=== PATIENT | female | born 1965 | race Caucasian/White ===

== ENCOUNTER → 2017-02-07 | Outpatient (CLI) | payer MEDICARE, MEDICAID | LOC: GMAJ 17:39 | PROVIDERS: ATTEND Family Medicine | DX: D51.3 Other dietary vitamin B12 deficiency anemia (principal); R23.3 Spontaneous ecchymoses ==

== ENCOUNTER → 2017-03-08 | Outpatient (CLI) | payer MEDICARE, MEDICAID | LOC: RESP 15:30 | PROVIDERS: ATTEND Family Medicine | DX: E53.8 Deficiency of other specified B group vitamins (principal); H81.10 Benign paroxysmal vertigo, unspecified ear ==

== ENCOUNTER 2017-03-10 11:52 | Observation (INO) | payer MEDICARE, MEDICAID ==
[2017-03-10] MEDS ORDERED: ASPIRIN TABLET 325 MG TAB PO ONE (12:19)
--- NOTE | 2017-03-10 12:30 | RAD ---
Study: Frontal and Lateral Views of the Chest. Indication: left arm and face tingling Comparison: June to 2013. IMPRESSION: Heart size normal. Lungs clear. Mild blunting left phosphoric angle, which may reflect scarring or a tiny effusion. No pneumothorax. No acute osseous abnormality. Electronically signed by: Scooby Miles MD 03/10/2017 12:28 PM CDT
--- NOTE | 2017-03-10 13:18 | CT ---
EXAM DESCRIPTION: CT head without contrast CLINICAL HISTORY: Left facial tingling. Arm tingling for approximately 3 hours COMPARISON: None. TECHNIQUE: Noncontrast spiral CT of the brain. This exam was performed according to our departmental dose-optimization program, which includes automated exposure control, adjustment of the mA and/or kV according to patient size and/or use of iterative reconstruction technique FINDINGS: No intracranial hemorrhage, infarction or mass lesion. Normal marshall-white matter differentiation Ventricles are normal in size and configuration. Atherosclerotic vascular calcifications are seen in the cavernous internal carotid arteries. No calvarial or skullbase fracture. No fluid in the paranasal sinuses or mastoid air cells IMPRESSION: Negative noncontrast head CT CT is insensitive for early evaluation of acute stroke or subtle might matter disease. If there is clinical concern for acute ischemia, an MRI may be considered. Electronically signed by: oMrgan Farrar MD 03/10/2017 1:17 PM CDT
--- NOTE | 2017-03-10 13:50 | ED.PDOC ---
History of Present Illness - General Chief Complaint: Neuro Symptoms/Deficits Stated Complaint: FACE AND LEFT ARM TINGLING Time Seen by Provider: 03/10/17 11:55 Source: patient Exam Limitations: no limitations - History of Present Illness Initial Comments: The patient is a 52-year-old female presenting to the emergency room secondary to a sensation of tingling to the left lower side of her face and her left arm for the 2 hours prior to arrival. Symptoms started while she was playing a game on her phone. No chest pain palpitations. No syncope or near- syncope. No vision taste or smell changes. No facial droop. No dysarthria or expressive or receptive aphasia. No difficulties with ambulation or fine dexterity. Sensation is preserved. Strength is preserved. No dizziness. additional information: The patient has been undergoing a workup for fatigue and dyspnea on exertion with her primary care doctor. She reports that multiple studies have been done but I do not have theresults for that. These results have been requested. She reports she thinks that everything that they have done is come back normal. Timing/Duration: 1-3 hours Severity: mild Improving Factors: nothing Worsening Factors: nothing Associated Symptoms: denies symptoms Allergies/Adverse Reactions: Allergies NO KNOWN ALLERGY Allergy (Verified 10/08/12 08:19) Review of Systems - Review of Systems Constitutional: States: malaise EENTM: States: no symptoms reported Respiratory: States: no symptoms reported, other - longer-term dyspnea on exertion Cardiology: States: no symptoms reported Gastrointestinal/Abdominal: States: no symptoms reported Genitourinary: States: no symptoms reported Musculoskeletal: States: no symptoms reported Skin: States: no symptoms reported Neurological: States: see HPI, anxiety Endocrine: States: no symptoms reported All other Systems: No Change from Baseline Past Medical History (General) - Patient Medical History Hx Stroke: No Hx Congestive Heart Failure: No Hx Hypertension: Yes Hx Diabetes: No Hx Cancer: No Hx MRSA: No Surgical History: Hysterectomy, other - Vaccination History Hx Influenza Vaccination: Yes - 2014 Hx Pneumococcal Vaccination: No - Social History Hx Tobacco Use: Yes Family Medical History - Family History Mother Family History: Unknown Living Status: Unknown Physical Exam - Physical Exam General Appearance: Alert, Anxious, No apparent distress Eye Exam: bilateral normal Ears, Nose, Throat: hearing grossly normal, normal ENT inspection, normal pharynx Neck: non-tender, full range of motion, supple Respiratory: chest non-tender, lungs clear, normal breath sounds, no respiratory distress, no accessory muscle use Cardiovascular/Chest: normal peripheral pulses, regular rate, rhythm, no edema Peripheral Pulses: radial,right: 2+, radial,left: 2+, dorsalis pedis,right: 2+, dorsalis pedis,left: 2+ Gastrointestinal/Abdominal: non tender, soft Rectal Exam: deferred Back Exam: normal inspection, no CVA tenderness, no vertebral tenderness Extremity: normal range of motion, non-tender, normal inspection, no pedal edema , no calf tenderness, normal capillary refill Neurologic: 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 II-XII nml as tested, no motor/sensory deficits, alert, normal mood/affect - anxious, oriented x 3 DTR: 2+: Patellar, left, Patellar, right Skin Exam: normal color Comments: Vital Signs - 24 hr 03/10/17 03/10/17 03/10/17 11:55 12:17 12:18 Temperature 99.4 F Pulse Rate [ 63 68 70 APICAL] Respiratory 20 20 22 Rate Blood Pressure 164/70 156/86 150/91 [RIGHT BRACHIAL ] O2 Sat by Pulse 98 98 98 Oximetry 03/10/17 03/10/17 03/10/17 12:19 12:59 13:26 Temperature Pulse Rate [ 66 104 H 114 H APICAL] Respiratory 22 16 Rate Blood Pressure 144/74 110/74 124/65 [RIGHT BRACHIAL ] O2 Sat by Pulse 98 100 100 Oximetry Progress - Progress Progress: 03/10/17 13:51 the patient is a 52-year-old female presenting to the emergency room secondary to what appears to be mild paresthesia to the left face and left upper extremity. This is most likely the result of nerve impingement, however I cannot definitively say that she is not having the initial symptoms of a small stroke. The patient will be monitored admitted for further neurological monitoring. Vital signs are stable. There is been no progression of symptoms. admit for further observation. No objectifiable deficits at this time. we are awaiting records from the primary care doctorfor the workup she has had over the last month for her symptoms of fatigue. - Results/Orders Results/Orders: Laboratory Tests 03/10/17 03/10/17 03/10/17 12:00 12:00 12:00 WBC 11.1 H RBC 5.19 Hgb 15.3 Hct 45.4 MCV 87.5 MCH 29.4 MCHC 33.6 RDW 14.6 H Plt Count 255 MPV 6.8 L Absolute Neuts (auto) 8.20 H Absolute Lymphs (auto) 2.00 Absolute Monos (auto) 0.70 Absolute Eos (auto) 0.10 Absolute Basos (auto) 0.00 Neutrophils % 73.7 Lymphocytes % 18.3 L Monocytes % 6.4 Eosinophils % 1.2 Basophils % 0.4 PT 10.6 INR 0.940 PTT (SP) 44.7 H D-Dimer, Quantitative < 200 Sodium 134 L Potassium 4.0 Chloride 97 L Carbon Dioxide 27 Anion Gap 14.0 BUN < 5 L Creatinine 0.67 BUN/Creatinine Ratio 7.5 L Random Glucose 102 Serum Osmolality 265.7 L Calcium 9.3 Magnesium 2.0 Total Bilirubin 0.5 AST 19 ALT 19 Alkaline Phosphatase 87 Creatine Kinase 46 CK-MB (CK-2) 1.1 CK-MB (CK-2) % Not Reportable Troponin I < 0.02 B-Natriuretic Peptide < 5.0 Serum Total Protein 7.0 Albumin 4.6 Globulin 2.4 Albumin/Globulin Ratio 1.9 TSH 1.16 chest x-ray appears benign. CT of the head shows no acute pathology. Departure - Departure Clinical Impression: Stroke-like symptoms Disposition: Admit Patient Decision To Admit - Decistion To Admit Decision to Admit Reason: Medical Nature Decision to Admit Date: 03/10/17 Decision to Admit Time: 13:54
--- NOTE | 2017-03-10 16:27 | HP ---
SUPERVISING PHYSICIAN: Morgan Tamez M.D. CHIEF COMPLAINT: Left face and arm tingling. HISTORY OF PRESENT ILLNESS: This is a 52 year-old female patient who has had several months of fatigue. She has been seeing her primary care physician, Dr. Leal, and has had quite a bit of testing done over the last few weeks. Yesterday, she said that she just did not feel very good and this morning about 9:30 AM the left side of her face started tingling. She also had some tingling in her arm and she had some pressure over the left shoulder area. There was no complaints of facial dropping or weakness in the leg. She said she felt like she had some heartburn. She also has a history of bipolar disorder as well as anxiety and she became very anxious about her condition, and she came to the Emergency Room. She had a carotid scheduled for next week for Dr. Leal. In the Emergency Room, her chest x-ray shows heart size is normal. Lungs are clear. Mild blunting of the left phosphoric angle which may reflect scarring or a tiny effusion. No pneumothorax. No acute osseous abnormality. CT of the head per radiology interpretation showed negative noncontrast head CT. Lab: Cardiac enzymes were negative. WBCs were slightly elevated at 11.1. Neutrophils were 73.7. D-dimer was less than 200. Sodium 134, potassium 4, chloride 97, carbon dioxide 27, BUN less than 5, creatinine 0.67, glucose 102, serum osmolality 265.7. I was called for admission. PAST MEDICAL HISTORY: 1. Gastroesophageal reflux disease. 2. Hyperlipidemia. 3. Hypertension. 4. Chronic obstructive pulmonary disease. 5. Bipolar disease. 6. Anxiety. PAST SURGICAL HISTORY: 1. Hysterectomy. 2. sections times 2. 3. Left knee surgery times 2. OUTPATIENT MEDICATIONS: Per the EMR and awaiting verification. ALLERGIES: NO KNOWN DRUG ALLERGIES. FAMILY HISTORY: Father had several myocardial infarctions. Mother had type 2 diabetes and bipolar disorder. SOCIAL HISTORY: She smokes about 3 to 4 cigarettes a day. She has smoked since she was 15. She has cut down from 1/2 pack per day. She quit drinking alcohol about 5 years ago and before that she drank alcohol to excess. She denies any illicit drug use. She is but lives with her ex-. She has 2 children. She lives here in [place]. REVIEW OF SYSTEMS: Positive for fatigue. Negative for fever or weight changes. HEENT: Negative for sinus symptoms, ear pain, vision changes or sore throat. RESPIRATORY: Denies coughing, wheezing or shortness of breath. CARDIAC: Left sided chest pain. Denies palpitations or tachycardia. ABDOMEN: Positive for heartburn. Denies constipation, diarrhea, nausea or vomiting. GENITOURINARY: Denies dysuria, hematuria or polyuria. SKIN: Denies lesions or rashes. NEUROLOGIC: Denies headaches, weakness or seizures. PSYCHIATRIC: Positive bipolar and anxiety. PHYSICAL EXAMINATION: VITAL SIGNS: She is afebrile, heart rate 78, blood pressure 149/83, respiratory rate 20, O2 saturation is 99% on room air. GENERAL: This is a 52 year-old female patient sitting in her hospital bed. She is in no acute distress. HEENT: Normocephalic and atraumatic. Pupils are equal and reactive. Oropharynx is clear. NECK: Supple without mass. CHEST: Clear to auscultation bilaterally. There is equal rise and fall of the chest with inspiration and expiration. CARDIOVASCULAR: Regular rate and rhythm. ABDOMEN: Soft, nondistended, non-tender. Bowel sounds are positive. EXTREMITIES: No cyanosis, clubbing or edema. NEUROLOGIC: She is awake, alert and oriented times three. Investor Relations Specialist are equal bilaterally. She has no noticeable facial droop. LABORATORY: Labs and films are as per the history of present illness with the exception of her second set of cardiac enzymes were negative. Urinalysis is still pending. All other labs and films have been reviewed via the EMR. ASSESSMENT: 1. Stroke-like symptoms. 2. Chest pain with negative cardiac enzymes and EKG with normal sinus rhythm. 3. Gastroesophageal reflux disease. 4. Bipolar disorder. 5. Anxiety. 6. Hypertension. 7. Hyperlipidemia. PLAN: We will place the patient in Observation. Will do neuro checks. I have ordered a carotid ultrasound. Will repeat her lab in the morning. As soon as her medications are verified, I will restart those, but as for now I have given her some Mylanta as well as some Xanax. I started her on Protonix for ulcer prophylaxis and Lovenox for DVT prophylaxis. Hopefully she will be discharged tomorrow with close followup with Dr. Leal. Dr. Tamez is the collaborating physician available for consultation. #[id number] [facility]
[2017-03-10] MEDS ORDERED: ALUM & MAG HYDROX-SIMETHICONE 30 ML UD PO ONE (16:57)
[2017-03-10] MEDS ORDERED: SODIUM CHLORIDE 0.9% (FLUSH) 10 ML SYG IV PRN (17:33)
[2017-03-10] MEDS ORDERED: LEVALBUTEROL NEBS 1.25 MG/3 ML VIAL INH PRN (17:35)
[2017-03-10] MEDS ORDERED: ACETAMINOPHEN 325 MG TAB PO PRN (17:35)
[2017-03-10] MEDS ORDERED: ALUM & MAG HYDROX-SIMETHICONE 30 ML UD PO PRN (17:37)
[2017-03-10] MEDS ORDERED: ALPRAZolam 0.25 MG TAB PO ONE (17:37)
[2017-03-10] MEDS ORDERED: PANTOPRAZOLE SODIUM IV 40 MG VIAL IV SCH (18:00)
[2017-03-10] MEDS ORDERED: ENOXAPARIN SODIUM 40 MG/0.4 ML SYG SUBCU SCH (18:00)
[2017-03-10] MEDS ORDERED: IV SET AND CAP CHANGE INJ INJ SCH (18:00)
[2017-03-10] MEDS: LEVALBUTEROL NEBS 1.25 MG/3 ML VIAL INH SCH (20:30)
[2017-03-10] MEDS ORDERED: hydrOXYzine PAMOATE 25 MG CAP PO PRN (22:32)
[2017-03-10] MEDS ORDERED: ALPRAZolam 0.5 MG TAB PO PRN (22:32)
[2017-03-10] MEDS ORDERED: NON-FORMULARY MEDICATION 1 EA MIS (Trazodone Hcl [Trazodone Hcl] 150 MG) PO SCH (22:32)
[2017-03-10] MEDS ORDERED: traZODone HCL 100 MG TAB PO ONE (22:40)
[2017-03-10] MEDS ORDERED: traZODone HCL 50 MG TAB PO ONE (22:40)
[2017-03-11] MEDS: LEVALBUTEROL NEBS 1.25 MG/3 ML VIAL INH SCH (08:35)
[2017-03-11] MEDS ORDERED: LISINOPRIL 10 MG TAB PO SCH (09:00)
[2017-03-11] MEDS ORDERED: BENZTROPINE MESYLATE TAB 1 MG TAB PO SCH (09:00)
[2017-03-11] MEDS ORDERED: SODIUM CHLORIDE 0.9% (FLUSH) 10 ML SYG IV SCH (09:00)
[2017-03-11] MEDS ORDERED: ARIPiprazole 5 MG TAB PO SCH (09:00)
[2017-03-11 10:14] VITALS: BP 160/94; TEMP 97.4; O2SAT 99
[2017-03-11] MEDS ORDERED: PANTOPRAZOLE SODIUM TAB 40 MG PO SCH (11:30)
--- NOTE | 2017-03-11 13:39 | DS ---
SUPERVISING PHYSICIAN: Morgan Tamez MD DISCHARGE DIAGNOSIS: 1. Stroke-like symptoms with left sided face tingling as well as left arm tingling. 2. Chest pain with negative cardiac enzymes and EKG that shows normal sinus rhythm and occasionally sinus bradycardia. 3. Gastroesophageal reflux disease. 4. Bipolar disorder. 5. Anxiety. 6. Hypertension. 7. Hyperlipidemia. HISTORY OF PRESENT ILLNESS: This is a 52-year-old female patient who has had several months of increasing fatigue. She has been seeing her primary care physician, Dr. Leal, and has had quite a bit of testing done over the last few weeks. Yesterday, she felt much worse than before about 9:30 AM the left side of her face started a tingling sensation. There was no aphasia, no facial drooping, no vision or smell changes. There was no syncope or near syncope. She also had some complaints of heartburn and has had increasing heartburn over the last several weeks. She also has a history of bipolar disorder as well as anxiety disorder and she became very anxious about her condition, and she came to the Emergency Room. She has had a 24 hour Holter monitor ordered by Dr. Leal last week that revealed mostly sinus rhythm to sinus bradycardia with a few incidences where her heart rate went down to the mid-40s. She had a carotid scheduled for next week and one was done shortly after admission here in the hospital. Per radiologic interpretation, it showed no hemodynamically significant stenosis detected. CT of the head per radiology interpretation showed negative noncontrast head CT. Lab in the Emergency Room showed cardiac enzymes were negative. WBCs were slightly elevated at 11.1. Neutrophils were 73.7. D-dimer was less than 200. Sodium 134, potassium 4, chloride 97, carbon dioxide 27, BUN less than 5, creatinine 0.67, glucose 102, serum osmolality 265.7. HOSPITAL COURSE: Shortly after being admitted to the Floor, the patient had the tingling sensation recur. Cardiac enzymes were again ordered and they were negative. She was given an extra dose of Xanax as well as Mylanta and relieved her symptoms. Her lab this morning showed a normalized white count of 7.7, sodium slightly low at 133. Serum osmolality was slightly low at 263.6. Urinalysis was within normal limits. This morning, she had another episode of the tingling in her left side. She was given some Mylanta and some Xanax and the symptoms were relieved. She can be discharged home today with close followup with Dr. Leal next week. DISCHARGE PLAN: The patient will be discharged home in stable condition. She is to resume her previous diet. I have sent extra dosing of Xanax for her anxiety until she can be further evaluated by her psychiatrist, Dr. Walker, at [facility], or until she sees Dr. Leal next week on 03/16/17 at 10 AM. I also instructed her she should take Mylanta for her episodic symptoms of gastroesophageal reflux disease. I have also given her 14 days of Protonix. She may warrant a workup by GI at some point. She will get a followup appointment with Dr. Walker. Due to her occasional episodes of bradycardia, I attempted to get an appointment with Dr. Genao in clinic today, but he was unavailable. She may need a cardiac workup at some point. She is to return to the hospital or call Dr. Leal' office if she has any further symptoms that are not alleviated with her Xanax and her Mylanta. We discussed the signs and symptoms of stroke at length and she voiced understanding. DISCHARGE MEDICATIONS: 1. Lisinopril. 2. Benztropine mesylate. 3. Her regular Xanax 0.5 mg b.i.d. 4. Trazodone. 5. Aripiprazole. 6. Hydroxyzine. 7. Xanax p.r.n. 8. Mylanta. 9. Pantoprazole. Dr. Tamez is the collaborating physician and available for consultation. #[id number] [facility]
[2017-03-11] MEDS ORDERED: traZODone HCL 100 MG, traZODone HCL 50 MG PO SCH ×2 (21:00)
[2017-03-11] MEDS ORDERED: ENOXAPARIN SODIUM 40 MG/0.4 ML SYG SUBCU SCH (21:00)
== END 2017-03-11 12:10 | disposition home or self-care (01) ==
LOC: ER 11:52 → MS 14:50 → ER 14:55
PROVIDERS: ADMIT Nurse Practitioner Acute Care; ATTEND Nurse Practitioner Acute Care
DX: R20.2 Paresthesia of skin (principal); R07.89 Other chest pain; K21.9 Gastro-esophageal reflux disease without esophagitis; F31.9 Bipolar disorder, unspecified; F41.9 Anxiety disorder, unspecified; I10 Essential (primary) hypertension; E78.5 Hyperlipidemia, unspecified; J44.9 Chronic obstructive pulmonary disease, unspecified; F17.210 Nicotine dependence, cigarettes, uncomplicated; Z90.710 Acquired absence of both cervix and uterus; Z82.49 Family history of ischemic heart disease and other diseases of the circulatory system; Z83.3 Family history of diabetes mellitus; Z81.8 Family history of other mental and behavioral disorders
CPT/HCPCS: 36415 ×4; 70450; 71020; 80053 ×2; 81001; 82550 ×3; 82553 ×3; 83735; 83880; 84443; 84484 ×3; 85025 ×2; 85379; 85610; 85730; 93005 ×2; 93880; 94640 ×3; 94760 ×5; 96372; 96374; 99284; G0378; J1650; J7614 ×2

== ENCOUNTER 2017-04-30 15:17 | Emergency (ER) | payer MEDICARE, MEDICAID ==
[2017-04-30 15:32] VITALS: BP 144/80; TEMP 98.9; O2SAT 95
--- NOTE | 2017-04-30 15:35 | ED.PDOC ---
History of Present Illness - General Chief Complaint: Dental/Mouth Stated Complaint: dental pain Time Seen by Provider: 04/30/17 15:31 Source: patient, RN notes reviewed, Vital Signs reviewed Exam Limitations: no limitations - History of Present Illness Initial Comments: Patient comes to ER with tooth pain. Pain is in a L lower molar. She use to have a cap of that tooth that fell off a while ago. Yesterday the piece of the tooth that was sticking up broke off. She is now having pain and swelling. Timing/Duration: 24 hours Severity: moderate Improving Factors: medication - aspirin Worsening Factors: eating Associated Symptoms: denies symptoms Allergies/Adverse Reactions: Allergies NO KNOWN ALLERGY Allergy (Verified 10/08/12 08:19) Home Medications: Ambulatory Orders ALPRAZolam [Xanax] 0.5 mg PO BID 03/10/17 Aripiprazole 30 mg PO DAILY 03/10/17 Benztropine Mesylate 2 mg PO BID 03/10/17 Hydroxyzine Pamoate 50 mg PO BID PRN 03/10/17 Lisinopril 40 mg PO DAILY 03/10/17 Trazodone HCl 150 mg PO BEDTIME 03/10/17 ALPRAZolam [Xanax] 0.25 mg PO Q6H #20 tab 03/11/17 Alum & Mag Hydrox-Simethicone [Mylanta] 30 ml PO Q4H PRN 03/11/17 Pantoprazole Tablet [Protonix] 40 mg PO DAILY@0630 #14 tablet 03/11/17 Amoxicillin [Amoxil] 500 mg PO TID #21 cap 04/30/17 Review of Systems - Review of Systems Constitutional: States: no symptoms reported. Denies: chills, fever EENTM: States: see HPI, mouth pain, mouth swelling Respiratory: States: no symptoms reported Cardiology: States: no symptoms reported Musculoskeletal: States: no symptoms reported Skin: States: no symptoms reported Neurological: States: no symptoms reported All other Systems: No Change from Baseline Past Medical History (General) - Patient Medical History Hx Stroke: No Hx Congestive Heart Failure: No Hx Hypertension: Yes Hx Diabetes: No Hx Cancer: No Hx MRSA: No Surgical History: Hysterectomy - Vaccination History Hx Influenza Vaccination: Yes Hx Pneumococcal Vaccination: No - Social History Hx Tobacco Use: Yes Family Medical History - Family History Mother Family History: Unknown Living Status: Still Living Physical Exam - Physical Exam General Appearance: Alert, Comfortable, No apparent distress, Well Developed, Well Groomed, Well Hydrated, Well Nourished Ears, Nose, Throat: other - L lower molar - broken @ gumline with surrounding swelling and tenderness Neck: full range of motion, supple, lymphadenopathy (L) - tender Respiratory: no respiratory distress Neurologic: alert, normal mood/affect, oriented x 3 Skin Exam: normal color, warm/dry Comments: Vital Signs 04/30/17 15:28 Temperature 98.9 F Pulse Rate [ 70 Left Brachial] Respiratory 16 Rate Blood Pressure 144/80 [Left Arm] O2 Sat by Pulse 95 Oximetry Departure - Departure Clinical Impression: Pain due to dental caries, Dental abscess Time of Disposition: 15:37 Disposition: Discharge to Home or Self Care Condition: Good Departure Forms: ED Discharge - Pt. Copy, Patient Portal Self Enrollment Instructions: Tooth Abscess Diet: resume usual diet Activity: increase activity as tolerated Referrals: Dilip Leal MD [Primary Care Provider] - 1-2 Weeks Prescriptions: Amoxicillin [Amoxil] 500 mg PO TID #21 cap Home Medications: Ambulatory Orders ALPRAZolam [Xanax] 0.5 mg PO BID 03/10/17 Aripiprazole 30 mg PO DAILY 03/10/17 Benztropine Mesylate 2 mg PO BID 03/10/17 Hydroxyzine Pamoate 50 mg PO BID PRN 03/10/17 Lisinopril 40 mg PO DAILY 03/10/17 Trazodone HCl 150 mg PO BEDTIME 03/10/17 ALPRAZolam [Xanax] 0.25 mg PO Q6H #20 tab 03/11/17 Alum & Mag Hydrox-Simethicone [Mylanta] 30 ml PO Q4H PRN 03/11/17 Pantoprazole Tablet [Protonix] 40 mg PO DAILY@0630 #14 tablet 03/11/17 Amoxicillin [Amoxil] 500 mg PO TID #21 cap 04/30/17 Additional Instructions: Follow up with Dentist ARIADNE
== END 2017-04-30 15:52 | disposition home or self-care (01) ==
LOC: ER 15:17
DX: K02.9 Dental caries, unspecified (principal); K04.7 Periapical abscess without sinus; I10 Essential (primary) hypertension; Z87.891 Personal history of nicotine dependence

== ENCOUNTER → 2017-06-07 | Outpatient (CLI) | payer MEDICARE, MEDICAID | LOC: GMAJ 11:16 | PROVIDERS: ATTEND Family Medicine | DX: I10 Essential (primary) hypertension (principal); E53.8 Deficiency of other specified B group vitamins ==

== ENCOUNTER → 2017-10-27 | Outpatient (CLI) | payer MEDICARE, MEDICAID | END | disposition home or self-care (01) | LOC: GMAJ 10:08 | PROVIDERS: ATTEND Family Medicine | DX: I10 Essential (primary) hypertension (principal) ==

== ENCOUNTER → 2017-11-03 | Outpatient (CLI) | payer MEDICARE, MEDICAID ==
--- NOTE | 2017-11-07 08:30 | MAM ---
EXAM DESCRIPTION: 3D Screening BILATERAL : Digital Mammography. CLINICAL HISTORY: 52 years Female SCREENING . No complaints. No family history of breast cancer. Sister and remote family history of ovarian cancer. Postmenopausal. No HRT. COMPARISON: Baseline study at this facility.. No prior reports available. TECHNIQUE: Bilateral CC and MLO projection full-field images, 3-D tomosynthesis digital mammographic technique. Also bilateral synthesized CC/ MLO full-field images. CAD not utilized. FINDINGS: The breast parenchymal density pattern is: Scattered areas of fibroglandular density. No skin thickening or nipple retraction bilateral solitary microcalcifications. Focal asymmetry in the middle third of the upper-outer quadrant of the right breast approximately 8 cm from the nipple. Not associated with microcalcifications. Focal asymmetry in the lateral left breast middle third approximately 6 cm from the nipple. Not associated with microcalcifications. No focal, stellate mass or density, , and no suspicious microcalcifications bilaterally. IMPRESSION: BI-RADS CATEGORY: 0 - INCOMPLETE- Need additional imaging evaluation. FOLLOW-UP: Recall for additional imaging: Bilateral 3-D tomosynthesis full field LM images. Bilateral targeted breast ultrasound.. Written communication concerning the IMPRESSION and Follow-up, will be mailed to the patient and referring health care provider. Electronically signed by: Amrit Russell MD 11/07/2017 8:29 AM CDT
== END ==
LOC: MAMMO 09:59
PROVIDERS: ATTEND Family Medicine
DX: Z12.31 Encounter for screening mammogram for malignant neoplasm of breast (principal)

== ENCOUNTER → 2017-11-21 | Outpatient (CLI) | payer MEDICARE, MEDICAID ==
--- NOTE | 2017-11-21 10:56 | MAM ---
EXAM DESCRIPTION: 3D Diagnostic, Bilateral: Digital Mammography CLINICAL HISTORY: 52 yearsFemaleABNORMAL MAMMOGRAM bilateral focal asymmetry in the breast.. COMPARISON: 3-D digital screening bilateral mammography 11/07/2017.. Bilateral targeted breast ultrasound following this examination. Reports from prior examinations also reviewed. TECHNIQUE: Bilateral LM projection full-field images, 3-D tomosynthesis digital mammographic technique. Also bilateral synthesized LM full-field images. CAD not utilized. FINDINGS: The breast parenchymal density pattern is: Scattered areas of fibroglandular density. No skin thickening or nipple retraction . Solitary microcalcification right breast. Bilateral regions of focal asymmetry seen on the prior study not well visualized on the 3-D tomosynthesis LM images bilaterally. No focal, stellate mass or density, focal asymmetry , and no suspicious microcalcifications bilaterally. ULTRASOUND: Scanning at the 900 clock position of the right breast, 8 cm from the nipple. Mostly fatty echotexture with minimal fibroglandular tissues. No distinct solid mass or cyst, no large calcifications or parenchymal edema. No skin changes. Normal Doppler vascularity. Scanning at the 400 clock position of the left breast 6 cm from the nipple. Same findings as in the right breast. IMPRESSION: BI-RADS CATEGORY: 2 - BENIGN FINDINGS. FOLLOW UP: Return to routine digital bilateral screening, one year interval from October 2017. The FINDINGS and the FOLLOW-UP plan were reviewed in person with the patient after the examination. Written communication explaining the IMPRESSION and FOLLOW-UP will be mailed to the patient and referring care provider. According to the [employer], yearly mammograms are recommended starting at age 40 and continuing as long as a woman is in good health. Any breast change noted on a breast self-exam should be reported promptly to the patient's healthcare provider. Breast MRI is recommended for women with an approximately 20-25% or greater lifetime risk of breast cancer, including women with a strong family history of breast or ovarian cancer and women who have been treated for Hodgkin's disease. A negative mammographic report should not delay tissue diagnosis in patients with significant clinical history or physical findings. Extremely dense breast tissue limits the sensitivity of digital mammography. Electronically signed by: Amrit Russell MD 11/21/2017 10:55 AM CDT
--- NOTE | 2017-11-21 10:56 | US ---
EXAM DESCRIPTION: Breast,Bilateral: Ultrasound CLINICAL HISTORY: 52 yearsFemaleABNORMAL AND INCONCLUSIVE MAMMOGRAM COMPARISON: Digital diagnostic 3-D tomosynthesis bilateral mammograms on this visit. Bilateral 3-D tomosynthesis screening mammography 11/03/2017. TECHNIQUE: Transcutaneous scanning of the bilateral breast utilizing two-dimensional and Doppler modes. Scanning performed by the flight communications officer and Dr. Russell. FINDINGS: Scanning at the 900 clock position of the right breast, 8 cm from the nipple. Mostly fatty echotexture with minimal fibroglandular tissues. No distinct solid mass or cyst, no large calcifications or parenchymal edema. No skin changes. Normal Doppler vascularity. Scanning at the 400 clock position of the left breast 6 cm from the nipple. Same findings as in the right breast. IMPRESSION: 1. Bi-Rads Category 2: Benign. 2. Please refer to bilateral 3-D tomosynthesis diagnostic breast mammography and report on this visit. The FINDINGS and the FOLLOW-UP plan were reviewed in person with the patient after the examination. Written communication explaining the IMPRESSION and FOLLOW-UP will be mailed to the patient and referring care provider. Electronically signed by: Amrit Russell MD 11/21/2017 10:55 AM CDT
== END ==
LOC: MAMMO 09:00
PROVIDERS: ATTEND Family Medicine
DX: R92.8 Other abnormal and inconclusive findings on diagnostic imaging of breast (principal)
CPT/HCPCS: 76641; 77066; G0279

== ENCOUNTER 2018-06-12 05:40 | Day surgery (SDC) | payer MEDICARE, MEDICAID ==
[2018-06-12] MEDS ORDERED: TROP 1%/CYCLOPEN 1%/PHENYL 2% DROPS OPHTH ONE (05:41)
[2018-06-12] MEDS ORDERED: MIDAZOLAM INJ 2 MG/2 ML VIAL ONE ×2 (10:07→10:53)
[2018-06-12] MEDS ORDERED: PROPARACAINE 0.5% OPHTH SOL 15 ML BTTL LEFT_EYE ONE (10:43)
[2018-06-12] MEDS ORDERED: DEXAMETHASONE 0.1% OPHTH SOL 1 DROP LEFT_EYE ONE ×2 (10:47→11:06)
[2018-06-12] MEDS ORDERED: BRIMONIDINE 0.2% OPHTH DROPS LEFT_EYE ONE ×2 (10:47→11:06)
[2018-06-12] MEDS ORDERED: TOBRAMYCIN SULF 0.3 % OPHT SOL 1 DROP LEFT_EYE ONE ×2 (10:47→11:06)
[2018-06-12] MEDS ORDERED: LIDOCAINE 1% 2 ML VIAL INJ ONE ×2 (10:47→10:54)
== END 2018-06-12 11:50 | disposition home or self-care (01) ==
LOC: AMB 05:40
PROVIDERS: ATTEND Ophthalmology
DX: H25.9 Unspecified age-related cataract (principal); I10 Essential (primary) hypertension; F17.200 Nicotine dependence, unspecified, uncomplicated; Z79.899 Other long term (current) drug therapy
CPT/HCPCS: 00142; 66984; J2250

== ENCOUNTER 2018-06-26 05:40 | Day surgery (SDC) | payer MEDICARE, MEDICAID ==
[2018-06-26] MEDS ORDERED: TROP 1%/CYCLOPEN 1%/PHENYL 2% DROPS ONE (05:58)
[2018-06-26] MEDS ORDERED: PROPARACAINE 0.5% OPHTH SOL 15 ML BTTL ONE (05:58)
[2018-06-26] MEDS ORDERED: MIDAZOLAM INJ 2 MG/2 ML VIAL ONE (06:38)
[2018-06-26] MEDS ORDERED: LIDOCAINE 1% MPF 5 ML VIAL INJ ONE (07:36)
[2018-06-26] MEDS ORDERED: BRIMONIDINE 0.2% OPHTH DROPS RIGHT_EYE ONE (07:48)
[2018-06-26] MEDS ORDERED: TOBRAMYCIN SULF 0.3 % OPHT SOL 1 DROP RIGHT_EYE ONE (07:48)
[2018-06-26] MEDS ORDERED: DEXAMETHASONE 0.1% OPHTH SOL 1 DROP RIGHT_EYE ONE (07:48)
== END 2018-06-26 08:22 | disposition home or self-care (01) ==
LOC: AMB 05:40
PROVIDERS: ATTEND Ophthalmology
DX: H25.11 Age-related nuclear cataract, right eye (principal); I10 Essential (primary) hypertension; K21.9 Gastro-esophageal reflux disease without esophagitis; F17.200 Nicotine dependence, unspecified, uncomplicated; F41.9 Anxiety disorder, unspecified
CPT/HCPCS: 00142; 66984; J2250

== ENCOUNTER → 2018-11-24 | Outpatient (CLI) | payer MEDICARE, MEDICAID ==
--- NOTE | 2018-11-26 09:00 | CT ---
EXAM DESCRIPTION: Chest w/o Contrast : Computed Tomography. CLINICAL HISTORY: 53 years Female CHRONIC OBSTRUCTIVE PULMONARY DISEASE COMPARISON: CTA chest 06/25/2014. TECHNIQUE: Spiral-axial scans at 5 x 5 mm intervals through the lungs and thorax without IV contrast. 2.5 x 5 mm lung algorithm axial reconstructions. Coronal and sagittal 2.0 Mm reconstructions. Total Exam DLP: 355.44 mGy-cm. This exam was performed according to our departmental dose-optimization program which includes automated exposure control, adjustment of the mA and/or kV according to patient size and/or use of iterative reconstruction technique; to reduce radiation dose to as low as reasonably achievable (ALARA). Nodule measurements under 10 mm are given as mean value of 3 axes diameters. FINDINGS: Lungs and large airways: Small solid nodules less than 4 mm in diameter in the right upper lobe. Stable since the prior study. Fissural thickening inferior right major fissure. Stable since the prior study. 4 mm subsolid nodule superior segment left lower lobe on image 4/71. Not seen on the prior study. Pleural parenchymal scarring in the inferior lingula. Thickening of the inferior fissure abutting the inferior lingula. No abnormal nodules or masses. No focal infiltrate. Pleural spaces: Negative. Mediastinum and Jing: Evaluation limited due to lack of IV contrast. No enlarged lymph nodes. Great vessels and Heart: Minimal atherosclerotic calcification in the aortic arch and proximal brachiocephalic vessels. Soft tissues of neck base, axillae, and chest wall: Evaluation limited due to lack of IV contrast.. Lymph nodes are not enlarged. Upper abdomen: Gallbladder partially visualized. Osseous structures: Minimal upper thoracic levoscoliosis. Minimal spondylosis. Right sternoclavicular arthrosis. IMPRESSION: 1. Bilateral pulmonary nodules most less than 4 mm in diameter with one 4 mm nodule in the superior segment of the left lower lobe. This nodule was not seen on the prior study which may be due to technique with thicker slices. [facility] Best Practice recommendations: No routine follow-up recommended. 2. Clinical emphysema but no significant CT findings. Electronically signed by: Amrit Russell MD 11/26/2018 8:58 AM CDT
== END ==
LOC: CT 13:22
PROVIDERS: ATTEND Family Medicine
DX: J44.9 Chronic obstructive pulmonary disease, unspecified (principal); R91.8 Other nonspecific abnormal finding of lung field

== ENCOUNTER → 2019-04-02 | Outpatient (CLI) | payer OTHER, MEDICAID | LOC: GMAJS 11:46 | PROVIDERS: ATTEND Physician Assistant | DX: L23.9 Allergic contact dermatitis, unspecified cause (principal) ==

== ENCOUNTER → 2019-05-03 | Outpatient (CLI) | payer OTHER, MEDICAID ==
--- NOTE | 2019-05-03 11:06 | CT ---
EXAM DESCRIPTION: Head w/wo Contrast CLINICAL HISTORY: LOCALIZED SWELLING, MASS AND LUMP COMPARISON: None available TECHNIQUE: CT brain is performed prior to and following IV administration of routine adult dose of nonionic iodinated IV contrast. FINDINGS: Ventricles and sulci are unremarkable on the precontrast images. There is no hemorrhage or mass. There are no white matter abnormalities detected. The calvarium is unremarkable. The visualized paranasal sinuses and the mastoids are clear. After IV contrast, normal enhancement of intracranial vessels. Normal marshall-white matter differentiation. No enhancing intracranial mass lesion. Coronal and sagittal reformatted images confirm the findings. IMPRESSION: Normal pre and postcontrast CT imaging of the brain. This exam was performed according to our departmental dose-optimization program, which includes automated exposure control, adjustment of the mA and/or kV according to patient size and/or use of iterative reconstruction technique. Electronically signed by: Zander Pope MD 05/03/2019 11:05 AM CDT
--- NOTE | 2019-05-03 11:11 | CT ---
EXAM DESCRIPTION: Maxillofacial w/wo Contrast CLINICAL HISTORY: 54 years Female, LOCALIZED SWELLING, MASS AND LUMP COMPARISON: None. FINDINGS: Axial images show clear paranasal sinuses. Mandible and maxilla are intact. Intact nasal skeleton. Symmetrical appearance of the globes. Unremarkable orbital contents. Lower brain appears intact. No lump or mass of the face. Normal symmetrical submandibular salivary glands. Mildly prominent submental and submandibular lymph nodes may be reactive. Normal fatty parapharyngeal spaces. Parotid glands appear symmetrical. Coronal and sagittal reformatted images confirm the findings. IMPRESSION: Negative. Electronically signed by: Zander Pope MD 05/03/2019 11:10 AM CDT
== END ==
LOC: CT 10:30
PROVIDERS: ATTEND Physician Assistant
DX: R22.0 Localized swelling, mass and lump, head (principal)

== ENCOUNTER 2020-04-11 11:52 | Emergency (ER) | payer OTHER, MEDICAID ==
[2020-04-11] MEDS ORDERED: ACETAMINOPHEN 500 MG TAB PO ONE (12:09)
[2020-04-11] MEDS ORDERED: ONDANSETRON INJ 4 MG/2 ML VIAL IV ONE (12:09)
[2020-04-11] MEDS ORDERED: SODIUM CHLORIDE 0.9% 1000ML 1,000 ML IVS ONE ×2 (12:09→13:31)
--- NOTE | 2020-04-11 12:14 | ED.PDOC ---
History of Present Illness - General Chief Complaint: Blood Pressure Problem Stated Complaint: BP problems,GRIMALDO,indigestion Time Seen by Provider: 04/11/20 12:08 - History of Present Illness Initial Comments: 55 yo F PMH HTN presents to ED sent in by PMD Dr. Leal c/o indigestion nausea headache x 1 day. Denies fever cough sob recent travel or contact with covid19. Denies fever chills admits nausea denies vomiting diarrhea chest pain sob diaphoresis. No change in diet rest is disturbed no change in bowel or bladder denies drinking or smoking no other c/o today. PPE worn-N95 surgical mask with attached face shield over N95 goggles gloves and face shield over that Allergies/Adverse Reactions: Allergies NO KNOWN ALLERGY Allergy (Verified 10/08/12 08:19) Home Medications: Ambulatory Orders Aripiprazole 30 mg PO DAILY 03/10/17 Hydroxyzine Pamoate 50 mg PO BID 03/10/17 Lisinopril 40 mg PO DAILY 03/10/17 Atorvastatin Calcium [Lipitor] 10 mg PO DAILY 04/11/20 Chlorthalidone 25 mg PO DAILY 04/11/20 Review of Systems - Review of Systems Constitutional: States: see HPI EENTM: States: see HPI Respiratory: States: see HPI Cardiology: States: see HPI Gastrointestinal/Abdominal: States: see HPI Genitourinary: States: see HPI Musculoskeletal: States: see HPI Skin: States: see HPI Neurological: States: see HPI Endocrine: States: see HPI All other Systems: Reviewed and Negative Past Medical History (General) - Patient Medical History Hx Stroke: No Hx Congestive Heart Failure: No Hx Hypertension: Yes Hx Diabetes: No Hx Cancer: No Hx MRSA: No - Vaccination History Hx Influenza Vaccination: Yes Hx Pneumococcal Vaccination: No - Social History Hx Tobacco Use: Yes Family Medical History - Family History Mother Family History: Unknown Living Status: Still Living Physical Exam - Physical Exam General Appearance: No apparent distress Eye Exam: bilateral normal Ears, Nose, Throat: normal ENT inspection Neck: non-tender, full range of motion Respiratory: no respiratory distress Cardiovascular/Chest: regular rate, rhythm Gastrointestinal/Abdominal: non tender, soft Rectal Exam: deferred Back Exam: normal inspection Extremity: normal range of motion, non-tender Neurologic: no motor/sensory deficits Skin Exam: normal color Progress - Progress Progress: 04/11/20 12:15 A/P-HTN Nausea Headache-iv bolus tylenol zofran cbc cmp lipase pt ptt trop ekg cxr ct head reassess - Results/Orders Results/Orders: EKG-non specific TW changes No STEMI NSR 75bpm Laboratory Tests 04/11/20 04/11/20 04/11/20 12:26 12:26 12:26 WBC 10.9 H RBC 5.06 Hgb 14.8 Hct 40.3 MCV 79.6 L MCH 29.3 MCHC 36.8 RDW 13.4 Plt Count 288 MPV 6.9 L Absolute Neuts (auto) 7.60 H Absolute Lymphs (auto) 2.00 Absolute Monos (auto) 1.10 H Absolute Eos (auto) 0.10 Absolute Basos (auto) 0.00 Neutrophils % 69.7 Lymphocytes % 18.7 L Monocytes % 10.2 H Eosinophils % 1.0 Basophils % 0.4 PT 9.9 INR 1.00 PTT (SP) 31.3 Sodium 116 L* Potassium 3.3 L Chloride 81 L Carbon Dioxide 24 Anion Gap 14.3 BUN 12 Creatinine 0.74 BUN/Creatinine Ratio 16.2 Random Glucose 106 H Serum Osmolality 234.9 L* Calcium 8.7 Total Bilirubin 1.1 H AST 20 ALT 21 Alkaline Phosphatase 97 Troponin I Serum Total Protein 6.7 Albumin 4.1 Globulin 2.6 Albumin/Globulin Ratio 1.6 Lipase 36 04/11/20 12:26 WBC RBC Hgb Hct MCV MCH MCHC RDW Plt Count MPV Absolute Neuts (auto) Absolute Lymphs (auto) Absolute Monos (auto) Absolute Eos (auto) Absolute Basos (auto) Neutrophils % Lymphocytes % Monocytes % Eosinophils % Basophils % PT INR PTT (SP) Sodium Potassium Chloride Carbon Dioxide Anion Gap BUN Creatinine BUN/Creatinine Ratio Random Glucose Serum Osmolality Calcium Total Bilirubin AST ALT Alkaline Phosphatase Troponin I < 0.02 Serum Total Protein Albumin Globulin Albumin/Globulin Ratio Lipase Laboratory Tests 04/11/20 04/11/20 04/11/20 12:26 12:26 12:26 WBC 10.9 H RBC 5.06 Hgb 14.8 Hct 40.3 MCV 79.6 L MCH 29.3 MCHC 36.8 RDW 13.4 Plt Count 288 MPV 6.9 L Absolute Neuts (auto) 7.60 H Absolute Lymphs (auto) 2.00 Absolute Monos (auto) 1.10 H Absolute Eos (auto) 0.10 Absolute Basos (auto) 0.00 Neutrophils % 69.7 Lymphocytes % 18.7 L Monocytes % 10.2 H Eosinophils % 1.0 Basophils % 0.4 PT 9.9 INR 1.00 PTT (SP) 31.3 Sodium 116 L* Potassium 3.3 L Chloride 81 L Carbon Dioxide 24 Anion Gap 14.3 BUN 12 Creatinine 0.74 BUN/Creatinine Ratio 16.2 Random Glucose 106 H Serum Osmolality 234.9 L* Calcium 8.7 Total Bilirubin 1.1 H AST 20 ALT 21 Alkaline Phosphatase 97 Troponin I Serum Total Protein 6.7 Albumin 4.1 Globulin 2.6 Albumin/Globulin Ratio 1.6 Lipase 36 04/11/20 04/11/20 12:26 14:14 WBC RBC Hgb Hct MCV MCH MCHC RDW Plt Count MPV Absolute Neuts (auto) Absolute Lymphs (auto) Absolute Monos (auto) Absolute Eos (auto) Absolute Basos (auto) Neutrophils % Lymphocytes % Monocytes % Eosinophils % Basophils % PT INR PTT (SP) Sodium Potassium Chloride Carbon Dioxide Anion Gap BUN Creatinine BUN/Creatinine Ratio Random Glucose Serum Osmolality Calcium Total Bilirubin AST ALT Alkaline Phosphatase Troponin I < 0.02 0.02 Serum Total Protein Albumin Globulin Albumin/Globulin Ratio Lipase Spoke to hospitalist who recommends transfer at Sodium of 116 is too low for our Medical Surgical Unit, will transfer [facility] Spoke to Dr. Cherry [facility] Accepts at 03:47pm Departure - Departure Clinical Impression: Hyponatremia, Generalized headache Time of Disposition: 15:49 Disposition: Discharge to Home or Self Care Condition: Fair Departure Forms: ED Discharge - Pt. Copy, Patient Portal Self Enrollment Instructions: DI for High Blood Pressure Referrals: Dilip Leal MD [Primary Care Provider] - 1-2 Days Home Medications: Ambulatory Orders Aripiprazole 30 mg PO DAILY 03/10/17 Hydroxyzine Pamoate 50 mg PO BID 03/10/17 Lisinopril 40 mg PO DAILY 03/10/17 Atorvastatin Calcium [Lipitor] 10 mg PO DAILY 04/11/20 Chlorthalidone 25 mg PO DAILY 04/11/20 Transfer to Outside Facility - Transfer Information Decision to Transfer Date: 04/11/20 Decision to Transfer Time: 15:49 Reason for Transfer: specialized care not available Accepting Provider:: Dr. Cherry Accepting Facility: [facility]
--- NOTE | 2020-04-11 13:29 | RAD ---
EXAM DESCRIPTION: Chest,1 View CLINICAL HISTORY: 55 years Female, HTN COMPARISON: None. FINDINGS: One view/radiograph Heart size and pulmonary vessels are within normal limits. There is no pneumothorax or pleural effusion. The lungs are clear bilaterally. The soft tissues are unremarkable. No acute osseous findings. Scarring in the lingula. IMPRESSION: No acute cardiopulmonary abnormality. Electronically signed by: Moises Conner MD 04/11/2020 1:27 PM CDT
--- NOTE | 2020-04-11 13:30 | CT ---
EXAM DESCRIPTION: Head CLINICAL HISTORY: headache COMPARISON: May 03, 2019 TECHNIQUE: Noncontrast transaxial CT images of the head are obtained from base to vertex. This exam was performed according to our departmental dose-optimization program, which includes automated exposure control, adjustment of the mA and/or kV according to patient size and/or use of iterative reconstruction technique. FINDINGS: The midline structures are not displaced. The sulci are age appropriate. The lateral, third, and fourth ventricles are normal in size, shape, and anatomic positioning. There is no evidence of mass, mass effect, hydrocephalus, or acute intracranial hemorrhage. No abnormal extra axial fluid collections are seen. Normal marshall-white differentiation is seen. Calcifications of the intracranial carotid arteries. The visualized bone windows show no depressed skull fracture or significant abnormality. The visualized paranasal sinuses. Fluid in the right inferior mastoid air cells.. IMPRESSION: 1. No acute abnormality is seen on noncontrast CT of the head. 2. Mild right mastoid effusion is seen. Electronically signed by: Hussain Gates MD 04/11/2020 1:27 PM CDT
[2020-04-11] MEDS ORDERED: levETIRAcetam INJ 1,000 MG in SODIUM CHLORIDE 0.9% 100ML 100 ML IVPB ONE (13:43)
[2020-04-11 16:36] VITALS: BP 128/74; TEMP 96.4; O2SAT 97
== END 2020-04-11 16:36 | disposition short-term general hospital (02) ==
LOC: ER 11:52
DX: R51 Headache (principal); E87.1 Hypo-osmolality and hyponatremia; R11.0 Nausea; I10 Essential (primary) hypertension; Z87.891 Personal history of nicotine dependence; Z79.899 Other long term (current) drug therapy
CPT/HCPCS: 36415; 70450; 71045; 80053; 81001; 83690; 84484; 85025; 85610; 85730; 93005; 94760; J2405; J7030; J7050

== ENCOUNTER → 2020-07-29 | Outpatient (CLI) | payer OTHER, MEDICAID | LOC: GMAJ 14:51 | PROVIDERS: ATTEND Family Medicine | DX: R53.83 Other fatigue (principal) ==

== ENCOUNTER 2020-08-14 05:32 | Day surgery (SDC) | payer OTHER, MEDICAID ==
[2020-08-14] MEDS ORDERED: LACTATED RINGERS 1,000 ML ONE (06:31)
[2020-08-14] MEDS ORDERED: PROPOFOL 200 MG/20 ML VIAL IV ONE (07:00)
[2020-08-14] MEDS ORDERED: LIDOCAINE 1% 10 ML VIAL INJ ONE (07:00)
[2020-08-14] MEDS ORDERED: LACTATED RINGERS 1,000 ML IVS ONE (07:30)
--- NOTE | 2020-08-14 09:02 | OP ---
DATE OF PROCEDURE: 08/14/20 PREOPERATIVE DIAGNOSIS: 1. History of colon polyps in this 55-year-old. POSTOPERATIVE DIAGNOSIS: 1. Colon polyps. PROCEDURE: 1. Colonoscopy. SURGEON: Dilip Rossi MD ANESTHESIA: General. FINDINGS: There was a small polyp at the very end of the cecum, approximately 2 mm. This was completely excised. Distal transverse with single polyp. Near the proximal transverse, there were 3 polyps, one almost 1.5 cm. One was 1.2 cm. These were excised completely with a snare. In the proximal descending, there was another polyp. It was a little bit elongated, probably 2.5 mm wide and 1.5 mm deep. I was unable to get with a snare, so we took it off with the forceps. COMPLICATIONS: None. ESTIMATED BLOOD LOSS: Minimal. PLAN: Discharge. INDICATION: As stated. PROCEDURE: General anesthesia was induced in the lateral position. Digital rectal exam was normal. The colonoscope was inserted and advanced without difficulty to the cecum. A polyp was removed there. Upon withdrawal, an additional polyp was seen in the proximal distal transverse colon and then another one just a little more distal to this, the area we had two. In the proximal descending was then additional flatter polyp. These were all excised completely. No evidence of additional polyps. A couple of diverticula were noted. The patient tolerated the procedure and was taken to Recovery to be discharged. We will await pathology and make further recommendations. #[id number] cc: Dilip Leal MD [facility]
[2020-08-14 09:25] VITALS: BP 148/69; TEMP 96.1; O2SAT 98
== END 2020-08-14 09:22 | disposition home or self-care (01) ==
LOC: AMB 05:32
PROVIDERS: ATTEND Surgery
DX: D12.0 Benign neoplasm of cecum (principal); D12.3 Benign neoplasm of transverse colon; K63.5 Polyp of colon; K57.30 Diverticulosis of large intestine without perforation or abscess without bleeding; J44.9 Chronic obstructive pulmonary disease, unspecified; I10 Essential (primary) hypertension; F41.9 Anxiety disorder, unspecified; F32.9 Major depressive disorder, single episode, unspecified; E78.00 Pure hypercholesterolemia, unspecified; F31.9 Bipolar disorder, unspecified; Z86.010 Personal history of colon polyps; Z90.710 Acquired absence of both cervix and uterus; Z83.3 Family history of diabetes mellitus; Z82.49 Family history of ischemic heart disease and other diseases of the circulatory system; Z81.8 Family history of other mental and behavioral disorders; Z79.899 Other long term (current) drug therapy